=== PATIENT | female | born 2000 ===

== ENCOUNTER 2021-09-07 20:21 | Emergency (ER) | payer MEDICAID ==
[2021-09-07 20:38] VITALS: BP 124/68
[2021-09-07] MEDS ORDERED: IBUPROFEN 600 MG TAB PO ONE (21:43)
== END 2021-09-07 22:47 | disposition left against medical advice (07) ==
LOC: ED 20:21
DX: S61.419A Laceration without foreign body of unspecified hand, initial encounter (principal); Z53.21 Procedure and treatment not carried out due to patient leaving prior to being seen by health care provider; X58.XXXA Exposure to other specified factors, initial encounter; Y93.89 Activity, other specified; Y92.89 Other specified places as the place of occurrence of the external cause; Y99.8 Other external cause status